=== PATIENT | male | born 2000 | race Caucasian/White ===

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

== ENCOUNTER 2021-01-24 14:38 | Emergency (ER) | payer SELFPAY ==
[~2021-01-24] VITALS: Ht 175.2 cm; Wt 81.6 kg
[2021-01-24 15:03] LABS: BILIRUBIN Negative (Negative); BLOOD Negative (Negative); CLARITY Clear (Clear); COLOR Yellow (Yellow); GLUCOSE Negative (Negative); KETONE Negative (Negative); LEUKO ESTERASE Negative (Negative); NITRITE Negative (Negative); PH 6.5 (4.5-8.0); UROBILINOGEN 0.2 E.U./dl (0.0-1.0)
[2021-01-24 15:05] LABS: BASO # 0.1 10*3/uL (0.0-0.1); BASO % 0.8 % (0.0-1.0); EOS # 0.2 10*3/uL (0.0-0.4); EOS % 2.6 % (1.0-4.0); HEMATOCRIT 47.1 % (42.0-52.0); LYMPH # 2.1 10*3/uL (1.3-4.4); LYMPH % 34.4 % (27.0-41.0); MEAN CELL VOLUME 87.4 fl (80.0-94.0); MEAN CORPUSCULAR HGB 29.3 pg (27.0-31.0); MEAN CORPUSCULAR HGB CONC 33.5 g/dl (33.0-37.0); MEAN PLATELET VOLUME 11.3 fl (9.6-12.3); MONO # 0.4 10*3/uL (0.1-1.0); MONO % 6.4 % (3.0-9.0); NEUT # 3.4 10*3/uL (2.3-7.9); NEUT % 55.5 % (47.0-73.0); PLATELET COUNT AUTOMATED 229 10*3/uL (130-400); RED BLOOD COUNT 5.39 10*6/uL (4.50-5.90); RED CELL DISTRI WIDTH 12.2 % (0-14.5); WHITE BLOOD COUNT 6.1 10*3/uL (4.8-10.8)
[2021-01-24 15:09] LABS: BACTERIA TRACE; EPITHELIAL CELLS 0-2; WBC 0-2 wbc/hpf (0-5)
[2021-01-24 15:11] LABS: URINE AMPHETAMINES < 1000 (1000ng/ml); URINE BARBITURATES < 200 (200ng/ml); URINE BENZODIAZEPINES < 200 (200ng/ml); URINE CANNABINOIDS (THC) > 50 (50ng/ml); URINE COCAINE < 300 (300ng/ml); URINE METHADONE < 300 (300ng/ml); URINE OPIATES < 300 (300ng/ml)
[2021-01-24 15:12] LABS: URINE PHENCYCLIDINE < 25 (25ng/ml)
[2021-01-24 15:17] LABS: ALBUMIN 4.3 gm/dl (3.1-4.5); ALKALINE PHOSPHATASE 56 U/L (45-117); BUN 10 mg/dl (7-24); CHLORIDE 109 mmol/L (98-107); CREATININE 0.88 mg/dL (0.70-1.30); LIPASE 58 U/L (73-393); POTASSIUM 3.9 mmol/L (3.5-5.1); SGOT/AST 18 IU/L (3-35); SGPT/ALT 29 U/L (12-78); SODIUM 142 mmol/L (136-145); TOTAL PROTEIN 7.3 gm/dL (6.4-8.2)
[2021-01-24 15:18] LABS: TROPONIN I < 0.015 ng/ml (<0.045)
[2021-01-24] MEDS ORDERED: PENICILLIN VK500 MG PO (15:25)
== END 2021-01-24 15:29 | disposition home or self-care (01) ==
LOC: ED 14:38
PROVIDERS: Nurse Practitioner Family
DX: S02.5XXA Fracture of tooth (traumatic), initial encounter for closed fracture (principal); F41.9 Anxiety disorder, unspecified; K02.9 Dental caries, unspecified; R11.2 Nausea with vomiting, unspecified; F90.9 Attention-deficit hyperactivity disorder, unspecified type; F17.200 Nicotine dependence, unspecified, uncomplicated; X58.XXXA Exposure to other specified factors, initial encounter; Y93.89 Activity, other specified; Y92.89 Other specified places as the place of occurrence of the external cause; Y99.8 Other external cause status

== ENCOUNTER 2024-03-02 20:12 | Emergency (ER) | payer SELFPAY ==
[~2024-03-02] VITALS: Ht 175.2 cm; Wt 81.6 kg
[~2024-03-02 20:12] MED LIST changes: +PENICILLIN VK500 MG PO
[2024-03-02] MEDS ORDERED: SODIUM CHLORIDE 0.9% 1,000 ML IV ONE (20:45)
[2024-03-02 21:02] LABS: HEMATOCRIT 49.1 % (42.0-52.0); MEAN CELL VOLUME 94.8 fl (80.0-94.0); MEAN CORPUSCULAR HGB 31.1 pg (27.0-31.0); MEAN CORPUSCULAR HGB CONC 32.8 g/dl (33.0-37.0); MEAN PLATELET VOLUME 11.1 fl (9.6-12.3); PLATELET COUNT AUTOMATED 268 10*3/uL (130-400); RED BLOOD COUNT 5.18 10*6/uL (4.50-5.90); RED CELL DISTRI WIDTH 12.7 % (0-14.5)
[2024-03-02 21:13] LABS: ACT PARTIAL THROMBO TIME 24.4 SECONDS (20.0-32.1)
[2024-03-02 21:19] LABS: MANUAL DIFF REFLEX YES
[2024-03-02 21:20] LABS: ALKALINE PHOSPHATASE 46 U/L (46-116); BUN 9 mg/dl (9-23); CHLORIDE 104 mmol/L (98-107); POTASSIUM 3.7 mmol/L (3.4-5.1); SGPT/ALT 14 U/L (5-49); TOTAL PROTEIN 6.9 gm/dL (6.0-8.0)
[2024-03-02 21:23] LABS: PLATELET SUFFICIENCY NORMAL (NORMAL); TOTAL CELLS COUNTED 100 #CELLS
[2024-03-02 21:25] LABS: POLYCHROMASIA SLIGHT
[2024-03-03] MEDS ORDERED: ANUSOL-HC25 MG R (01:11)
== END 2024-03-03 01:53 | disposition home or self-care (01) ==
LOC: ED 20:12
PROVIDERS: Nurse Practitioner
DX: K62.5 Hemorrhage of anus and rectum (principal); Z53.29 Procedure and treatment not carried out because of patient's decision for other reasons; R55 Syncope and collapse; F90.9 Attention-deficit hyperactivity disorder, unspecified type

== ENCOUNTER 2025-05-10 06:20 | Emergency (ER) | payer SELFPAY ==
[~2025-05-10] VITALS: Ht 175.2 cm; Wt 86.2 kg
[~2025-05-10 06:20] MED LIST changes: +ANUSOL-HC25 MG R
[2025-05-10] MEDS ORDERED: SEPTDS PO (07:21)
== END 2025-05-10 07:38 | disposition home or self-care (01) ==
LOC: ED 06:20
DX: R19.8 Other specified symptoms and signs involving the digestive system and abdomen (principal); Z79.899 Other long term (current) drug therapy

== ENCOUNTER 2025-07-03 22:11 | Emergency (ER) | payer SELFPAY ==
[~2025-07-03] VITALS: Ht 175.2 cm; Wt 86.2 kg
[~2025-07-03 22:11] MED LIST changes: +SEPTDS PO
[2025-07-03] MEDS ORDERED: Acetaminophen/Hydrocodone 5 MG/325 MG TABLET PO ONE (22:25)
[2025-07-03] MEDS ORDERED: Tdap Vaccine 0.5 ML SYR (Adult Vaccine) IM ONE (22:25)
[2025-07-03] MEDS ORDERED: SILVER SULFADIAZINE 25 GM TUBE T ONE (22:25)
[2025-07-03] MEDS ORDERED: Ondansetron Hydrochloride 4 MG TAB SL ONE (22:25)
== END 2025-07-03 22:46 | disposition home or self-care (01) ==
LOC: ED 22:11
DX: T23.201A Burn of second degree of right hand, unspecified site, initial encounter (principal); T31.0 Burns involving less than 10% of body surface; F90.9 Attention-deficit hyperactivity disorder, unspecified type; X58.XXXA Exposure to other specified factors, initial encounter; Y93.89 Activity, other specified; Y92.89 Other specified places as the place of occurrence of the external cause; Y99.8 Other external cause status